=== PATIENT | female | born 2000 | race Two or more races ===

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

== ENCOUNTER 2021-04-18 15:46 | Outpatient (CLI) | payer OTHER | END 2021-04-18 15:47 | disposition home or self-care (01) | LOC: BICRAD 15:46 | PROVIDERS: ATTEND Urology | DX: N20.0 Calculus of kidney (principal) | CPT/HCPCS: 74018 ==

== ENCOUNTER 2022-10-03 11:13 | Outpatient (CLI) | payer OTHER | END 2022-10-03 11:14 | disposition home or self-care (01) | LOC: RAD 11:13 | PROVIDERS: ATTEND Urology | DX: N20.0 Calculus of kidney (principal) | CPT/HCPCS: 74018 ==